=== PATIENT | female | born 1945 | race Caucasian/White ===

== ENCOUNTER 2019-10-08 09:38 | Outpatient (CLI) | payer MEDICARE, SELFPAY ==
--- NOTE | ~2019-10-08 | MMUS_ITS ---
US breast biopsy LT w image, MM post biopsy invasive LT 10/08/2019 10:39 (accession [id number]), 10/08/2019 10:40 (accession [id number]) EXAMINATION: US GUIDED NEEDLE BIOPSY WITH VACUUM ASSISTANCE DATE: 10/08/2019 10:54 CDT INDICATION: Left breast mass seen on prior examination. Ultrasound-guided core biopsy is requested t o evaluate for malignancy. TECHNIQUE AND FINDINGS: The risks and potential benefits of the procedure were discussed with the patient, and written inform ed consent was obtained. After sterile preparation of the left breast, 1% lidocaine was utilized for local anesthesia. 1% lidocaine with epinephrine was used for deep anesthesia. A 10G vacuum-assisted biopsy gun needle was advanced through to the outer edge of the region of inter est from a superior approach utilizing sonographic guidance. A total of three tissue core samples we re obtained through the lesion. An Inrad tissue marker clip was then placed at the biopsy site. Hemo stasis was achieved. The patient tolerated procedure well and there was no evidence of immediate complication. The patien t was given verbal instructions partly is from the department. Left breast mammograms to document ti ssue marker clip placement. The tissue samples were submitted to surgical pathology for histologic an alysis.] IMPRESSION: 1. Successful ultrasound-guided vacuum-assisted biopsy of left breast mass with tissue marker placem ent. Please refer to pathology report for histologic analysis. Reviewed, dictated and finalized at location A. IMPRESSION: 1. Successful ultrasound-guided vacuum-assisted biopsy of left breast mass wit h tissue marker placement. Please refer to pathology report for histologic anal ysis.
== END 2019-10-08 09:39 | disposition home or self-care (01) ==
LOC: ANHIMG 09:46
PROVIDERS: PCP Family Medicine; Visit Provider Surgery
DX: C50.412 Malignant neoplasm of upper-outer quadrant of left female breast (principal)
CPT/HCPCS: 19083; 88305; 88342

== ENCOUNTER 2019-11-05 00:32 | Outpatient (CLI) | payer MEDICARE, SELFPAY ==
[2019-11-06 13:40] LABS: SARS-CoV-2 RNA PCR Negative
== END 2019-11-05 00:33 | disposition home or self-care (01) ==
LOC: ANHCOVIDDT 00:32
PROVIDERS: PCP Family Medicine; Visit Provider Surgery
DX: Z01.812 Encounter for preprocedural laboratory examination (principal); Z20.828 Contact with and (suspected) exposure to other viral communicable diseases
CPT/HCPCS: 87635; C9803; U0003

== ENCOUNTER 2019-11-08 01:12 | Day surgery (SDC) | payer MEDICARE, SELFPAY ==
[2019-11-02 14:13] VITALS: BMI 24.1
[2019-11-08] VITALS (7 sets, daily range): BP systolic 114–127; BP diastolic 47–68; PULSE 54–76; RESP 10–20; TEMP 36.4; O2SAT 97–100
--- NOTE | ~2019-11-08 | NM_ITS ---
NM sentinel node inject only 11/09/2019 11:13 CDT INDICATION: Left breast cancer] TECHNIQUE: 1.1 Millicuries Tc 99m filtered sulfur colloid was injected by Dr. Shiv Person in 4 aliquo ts in the anterior upper outer quadrant of the breast near the areola. No images were obtained.] IMPRESSION: 1: Status post left breast sentinel lymph node radiopharmaceutical injection.] Reviewed, dictated and finalized at location B.
--- NOTE | ~2019-11-08 | MM_ITS ---
MM needle loc LT DATE: 11/08/2019 10:27 INDICATION: Preoperative wire localization of ribbon biopsy marker of inner mid left breast TECHNIQUE: The purpose of the procedure, technique and potential locations were discussed with the didier gordon. The patient verbalized understanding and gave consent. Timeout procedure confirmed proper patient, procedure and proper breast. The left breast was placed in compression with biopsy grid apparatus over the medial aspect of the le ft breast. The skin was prepared with sterile Betadine solution. 1% lidocaine local anesthetic was a warping mill operator th e skin overlying the area of the left breast marker. Subsequently a 5 cm [place] Mammalok needle was in troduced into the area of the biopsy marker. Mediolateral mammographic view confirmed proper directio n of the needle. Craniocaudal exposures were performed, with adjustment of the depth of the needle. S ubsequently the wire was engaged to the tip of the needle and the needle withdrawn. Final mediolatera l and craniocaudal mammographic exposures confirmed the wire intermittently positioned with respect t o the biopsy marker. The patient was very cooperative and tolerated the procedure well, without complaint or apparent comp lication. IMPRESSION: Successful preoperative mammographically guided wire localization of radiopaque biopsy ma rker in the inner mid left breast Reviewed, dictated and finalized at Location A. Reviewed, dictated and finalized at location A. IMPRESSION: Successful preoperative mammographically guided wire localization o f radiopaque biopsy marker in the inner mid left breast
--- NOTE | ~2019-11-08 | MM_ITS ---
MM surgical specimen LT DATE: 11/08/2019 13:28 INDICATION: Surgical excision of biopsy marker of left breast TECHNIQUE: Single digital mammographic exposure of surgical biopsy specimen without compression COMPARISON: 10/08/2019 postultrasound-guided biopsy left mammogram 11/08/2019 mammographic needle localization images FINDINGS: A biopsy marker is present within the surgical soft tissue specimen. IMPRESSION: Successful surgical excision of biopsy marker Reviewed, dictated and finalized at Location A. Reviewed, dictated and finalized at location A.
--- NOTE | 2019-11-08 07:31 | PM.HPGS ---
History of Present Illness History of Present Illness Consent: Risks, benefits, and alternatives of a left breast needle localized lumpectomy with sentinel lymph node biopsy possible left axillary dissection have been discussed and questions answered. Patient agrees to proceed with procedure. Chief complaint: left breast mass Narrative: Arianna Palacios is a 74 year old white female that presented to the office at the request of Dr Barnes for an evaluation after an abnormal mammogram. Patient had a diagnostic bilateral mammogram on 09/16/2019 that showed 16 mm maximal dimension left breast hypoechic lesion. BI-RADS 4. Patient had a left breast ultrasound on 09/16/2019 that showed 16 mm maximal dimension suspicious hypoechic lesion corresponding to the patient's palpable abnormality. Recommend biopsy. Patient reports she first noticed a palpable lump in her left breast in May. She reports the area was slightly bothersome and that is when she noticed it. She reports from when she first noticed the lump, it has not changed. She reports her pervious mammogram was 5+ years ago. She reports that she took control for a while, believes that this was for about 4-5 years. She reports she first started having periods when she was about 13 years old, at her best guess. She reports she has three children that were all delivered vaginally. She did not breast feed any of these children. She reports that she delivered the first child when she was 17 or 18 years old. She reports no changes to the nipple on either breast. Denies any drainage or discharge. Patient reports that this is the only mass that she can feel. Patient reports the area is not painful, but aggravating. Patient reports a family history of breast cancer because of a niece. She reports this is her brother's daughter, and she was diagnosed with breast cancer at the age of 35. She reports no sisters, and her mother at the age of 94 with double pneumonia and CHF. She reports that her mother had no problems with her breast. She reports her father of a stroke. She reports a history of hypertension, high cholesterol, diabetes type 2, and a-fib and CHF. She reports she had cardiac bypass in 2013. Patient currently takes medication to control these. Patient is currently taking Eliqus that is managed by Dr Ellis's she reports she has not seen a wind energy project manager in over a year ago she believes Review of Systems Constitutional: Constitutional: Reports no additional constitutional complaints, Reports fatigue and Denies malaise Eyes: Eyes: Denies change in vision and Denies loss of vision ENT: Reports Normal hearing present, Denies change in voice, Denies dizziness, Denies hoarseness and Denies sore throat Cardiovascular: Cardiovascular: Denies chest pain, Denies leg edema and Denies dyspnea Comments: Patient has a history of previous coronary bypass grafting in 2013. She has had no recent heart problems. She does have atrial fibrillation for which she is taking Eliquis. Respiratory: Respiratory: Denies cough, Denies dyspnea and Denies wheezing Gastrointestinal: Gastrointestinal: Denies hematochezia, Denies change in bowel habits and Denies heartburn Genitourinary: Genitourinary: Denies urinary frequency and Denies urinary incontinence Neurologic: Reports Normal hearing present, Denies confusion, Denies dizziness, Denies loss of vision, Denies memory loss and Denies seizure-like activity Psychiatric: Psychiatric: Denies confusion, Denies depression and Denies memory loss Endocrine: Endocrine: Denies cold intolerance and Reports fatigue Hematologic/Lymphatic: Hematologic/Lymphatic: Denies easy bleeding and Denies easy bruising Allergic/Immunologic: Allergic/Immunologic: Denies wheezing [facility] Past Medical History Medical History (Updated 11/08/19 @ 09:30 by Rigo Santiago DO) A-fib (~2013) Breast cancer, left breast (~08/2019) CAD (coronary artery disease) (~2013) CHF (con
[2019-11-08 09:00] LABS: Glucose Point of Care 143 (65-105)
[2019-11-08] MEDS: LACTATED RINGERS 1,000 ML 30 ML IV CONT (11:00)
--- NOTE | 2019-11-08 11:23 | WPDANESEPPF ---
Anes - Initial Pre Proc Eval Procedure: Operation Date: 11/08/19 11:30 Proposed Procedures p Left Breast Lumpectomy with Ultrasound and/Or Mammogram Guided Needle Localization, - Fran Richter MD s Left [place] Lymph Node Injection and Biopsy - Fran Richter MD Date/Time: 11/08/19 11:23 Surgeon: Fran Richter MD Pre Op Diagnosis: left breast mass Patient Data Age: 74 Gender: F Height: 1.56 m Weight: 58.2 kg Allergies Allergy/AdvReac Type Severity Reaction Status Date / Time amoxicillin Allergy Unknown Rash Verified 11/08/19 09:07 ampicillin Allergy Unknown rash Verified 11/08/19 09:07 Home Medications Medication Instructions Recorded Confirmed Type amlodipine 10 mg tablet 10 mg PO QAM 09/17/19 11/08/19 History apixaban 5 mg tablet 5 mg PO BID 09/17/19 11/08/19 History furosemide 40 mg tablet 60 mg PO QAM 09/17/19 11/08/19 History lisinopril 5 mg tablet 5 mg PO QAM 09/17/19 11/08/19 History nitroglycerin 2.5 mg 2.5 mg PO Q3-5M PRN 09/17/19 11/08/19 History capsule,extended release pravastatin 80 mg tablet 80 mg PO HS 09/17/19 11/08/19 History sotalol 80 mg tablet 80 mg PO QAM 09/17/19 11/08/19 History potassium chloride [Klor-Con M20] 20 meq PO QAM 11/02/19 11/08/19 History Laboratory Tests 11/08/19 08:58 POC Capillary Glucose 143 mg/dl H mg/dl (65-105) Patient hx anesthesia problems: none Family hx anesthesia problems: none REPLACED BY [facility] Past Medical History Medical History (Updated 11/08/19 @ 09:30 by Rigo Santiago DO) A-fib (~2013) Breast cancer, left breast (~08/2019) CAD (coronary artery disease) (~2013) CHF (congestive heart failure) Diabetes (Unknown) GERD (gastroesophageal reflux disease) Heart attack High cholesterol History of blood clots HTN (hypertension) (Unknown) Thyroid disease Surgical History Surgical History (Updated 11/08/19 @ 09:30 by Rigo J. Luchtefeld, DO) History of colonoscopy History of coronary artery stent placement prior to CABG History of ear surgery History of hip replacement Hx of CABG x3, 06/2013 Hx of cholecystectomy Family History Family History Father Diabetes mellitus Cerebrovascular accident Mother Bladder cancer Sibling Heart attack Grandparent Diabetes mellitus Social History Social History Smoking status: Never smoker Alcohol intake: never Substance use: never Living arrangements: alone Gender identity (if verbalized by the patient): Male Spiritual care concerns: No Anes - Eval Final PreProcedure Day of Procedure 11/08/19 11:23 Patient weight: normal Heart: regular rate and rhythm Lungs: clear to auscultation and normal air movement Airway: Mallampati scale class II Neurological: alert and oriented Last oral intake: >/= 8 hours ASA classification: IV Emergent: no Anesthetic plan: proceed Anesthesia type and monitoring: general LMA and standard monitoring Informed Consent: The patient's anesthetic plan and its attendant risks and benefits were discussed with the patient/family/POA. Questions were solicited and answers provided to the satisfaction of the patient/family/POA.
--- NOTE | 2019-11-08 11:33 | WPDHPUPDATE1 ---
History and Physical Update Update Date/Time: 11/08/19 11:33 History and Physical has been reviewed, including an updated exam of the patient. There are NO changes in the patient's condition. The pt have an echocardiogram done by her cardiolgist prior to cardiac clearence for this OR. Risks, benefits, and alternatives have been discussed and questions answered. Patient agrees to proceed with procedure.
[2019-11-08] MEDS: ceFAZolin 2 GM/D5W 50 ML 2 GM/50 ML BAG IVPB (11:38)
[2019-11-08] MEDS: BUPIVACAINE/EPINEPHRINE 0.25% 50 ML VIAL 30 ML INFILTRATE (12:25)
[2019-11-08] MEDS: ISOSULFAN BLUE 1% INJ 5 ML VIAL SUB-Q (12:27)
--- NOTE | 2019-11-08 12:48 | SUR.OPER ---
[place] Lymph Node #1 hand delivered to lab by KURT Cruz and received by Devi at 12:49.
--- NOTE | 2019-11-08 13:25 | SUR.OPER ---
Left Breast Lumpectomy specimen hand delivered to mamms by KURT Steiner and received by Chloe at 13:26.
--- NOTE | 2019-11-08 13:43 | SUR.OPER ---
Left Breast [place] Lymph Node #2 hand delivered to lab by KURT Cruz, and received by Devi at 13:42.
[2019-11-08 14:14] LABS: Glucose Point of Care 146 (65-105)
--- NOTE | 2019-11-08 14:33 | PM.PROC ---
Procedure Note - Detailed Date of procedure: 11/08/19 Pre-op diagnosis: left breast mass Biopsy-proven left breast cancer Post-op diagnosis: same Procedure performed: needle localized left breast lumpectomy Left sentinel lymph node biopsy times 2 injection of Lymphazurin blue (for identification sentinel lymph) Description of procedure: The patient was seen pre-operatively in the holding area, and I marked the patient on the operative side. The Left. She was brought to the operating room and anesthesia delivered. She was prepped and draped in the usual sterile fashion. The arm on this side was placed into a stockinette and wrapped with a Coband. It was then draped into the field sterile. A timeout was performed confirming patient and site of surgery. Then after inspection of the breast I carefully used Lymphazarin blue, 5 cc, to inject 1 cc in the subcuticular area of the areola at the edge of the areola at [address]. This was done with a 25 gauge needle and then the breast was massaged for 1 minute. A Left axillary incision was made, and the subcutaneous tissues were dissected toward the area of the second intercostal-brachail nerve with electrocautery and the clavipectoral fascia was incised with electrocautery. Using the Nvigator sentinel lymph node probe, the sentinel lymph node was identified and the count in vivo was up to 300 as we dissected one node out. I carefully dissected out what appeared to be a lymph node that was marked with high counts and also with a small blue green lymphatic heading directly to it. There was some blue green dye that appeared to be in the lymph node on one end of the approximately 2 x 1 cm area of the axillary tissue removed. at the other and there was something palpable which may be another lymph node. We notified the pathologist to watch for this. Then an ex vivo 10- second count of 3083 was recorded. The count in the axilla after removing this lymph node was between 12 and 40, for background noise. The sentinel lymph node was sent fresh for pathologic evaluation (touch preps). Following this a sterile 4 x 4 was placed in the axillary wound and a sterile towel placed over it. And we turned our attention to the left breast. We then turned our attention to the wire entering the medial side of the left breast approximately 3 cm off the nipple-areolar border about the 3 o'clock position. The localizing wire was noted to be entering the breast in the upper inner quadrant angled slightly laterally. This was entering just about 3 cm medial to the left nipple-areolar complex in that area. A transverse incision was made along the wire (starting just medial to it) and the tissue surrounding the distal end of the wire was removed widely with electrocautery. since review of the needle localized mammogram showed that the wire angled underneath the nipple I angled with it and took out a wide margin of tissue around the wire and beyond it laterally. The specimen was oriented using a long suture lateral in his short suture superior and laid on a grid for the specimen mammogram andit was sent for specimen mammogram. I did also send the breast tissue for fresh tissue exam immediate report requested at pathology. We waited to hear from pathology. First we heard that touch preps on the sentinel lymph node were negative. Also there were 1 smaller node along side the 1 marked as the 1st sentinel lymph node therefore after discussion with pathology They will search the specimen for another one and reported as a sentinel lymph node if found. Specimen mammogram was called back adequate by the Radiology department containing a clip, wire, and the abnormality Following this pathology called back also about the breast specimen. Mammography of the specimen showed the original biopsy clip that marked the tumor was in the specimen as all of the wire. Pathologist stated that we were close on the anterior barron
== END 2019-11-08 16:00 | disposition home or self-care (01) ==
PROVIDERS: PCP Family Medicine; Visit Provider Surgery
PROC: (CPT 19301; principal; 2019-11-08 11:30)
PROC: (CPT 19301; 2019-11-08 11:30)
DX: C50.912 Malignant neoplasm of unspecified site of left female breast (principal); I11.0 Hypertensive heart disease with heart failure; I50.9 Heart failure, unspecified; I48.91 Unspecified atrial fibrillation; I25.10 Atherosclerotic heart disease of native coronary artery without angina pectoris; E11.9 Type 2 diabetes mellitus without complications; K21.9 Gastro-esophageal reflux disease without esophagitis; I25.2 Old myocardial infarction; E07.9 Disorder of thyroid, unspecified; Z79.01 Long term (current) use of anticoagulants; Z95.1 Presence of aortocoronary bypass graft; Z95.5 Presence of coronary angioplasty implant and graft
CPT/HCPCS: 19301; 38525; 19281; 38792; 76098; 88307; 88329; 88333; A9270; A9520; C1713; C1769; J0690; J1100; J2250; J2405; J2704; J3010; J7120

== ENCOUNTER 2020-01-24 14:49 | Outpatient (CLI) | payer MEDICARE, SELFPAY ==
[2020-01-24 15:03] LABS: Basophils Absolute Auto 0.1 K/mm3 (0.0-0.1); Eosinophils Absolute Auto 0.2 K/mm3 (0-0.3); Eosinophils Percent Auto 2.6 % (0-4.4); Hematocrit 43.2 % (37.0-47.0); Hemoglobin 13.5 g/dL (12.0-15.0); Immature Granulocyte Absolute 0.02 K/mm3 (0.00-0.031); Immature Granulocyte Percent A 0.3 % (0-0.5); Lymphocytes Absolute Auto 0.99 K/mm3 (0.9-3.2); Mean Corpuscular HGB Conc 31.3 g/dl (32-36); Mean Corpuscular Hemoglobin 28.8 pg (26-34); Mean Corpuscular Volume 92.3 fl (80-100); Mean Platelet Volume 10.8 fl (7.4-10.4); Monocytes Absolute Auto 0.6 K/mm3 (0.1-0.6); Monocytes Percent Auto 9.9 % (2.6-8.5); Neutrophils Absolute Auto 4.3 K/mm3 (1.3-6.7); Neutrophils Percent Auto 70.2 % (45.5-73.1); Platelet Count Result 167 k/mm3 (150-375); Red Blood Count 4.68 M/mm3 (4.2-5.4); Red Cell Distribution Width 13.2 % (11.5-14.5); White Blood Count 6.2 K/mm3 (4.5-10.0)
[2020-01-24 15:07] LABS: Blood Urea Nitrogen 20 mg/dL (8-26); Carbon Dioxide 31 mmol/L (22-30); Chloride 102 mmol/L (98-109); Estimated Glomerular Filt Rate > 60; Glucose 128 mg/dL (70-105); Potassium 3.5 mmol/L (3.5-4.9); Sodium 143 mmol/L (138-146)
[2020-01-24 17:36] LABS: Alanine Aminotransferase 14 U/L (4-35); Albumin Level 4.5 g/dL (3.5-5.1); Alkaline Phosphatase 117 U/L (38-126); Anion Gap 10 mmol/L (8-16); Aspartate Amino Transferase 31 U/L (14-36); Bilirubin,Total 0.3 mg/dL (0.2-1.3); Blood Urea Nitrogen 20 mg/dL (7-17); Calcium 9.8 mg/dL (8.4-10.2); Carbon Dioxide 34 mmol/L (22-30); Chloride 100 mmol/L (98-107); Estimated Glomerular Filt Rate > 60; Glucose 131 mg/dL (65-105); Potassium 3.8 mmol/L (3.4-5.0); Sodium 144 mmol/L (137-145)
== END 2020-01-24 14:50 | disposition home or self-care (01) ==
LOC: ANHLAB 14:51
PROVIDERS: PCP Family Medicine; Visit Provider Internal Medicine Hematology & Oncology
DX: C50.912 Malignant neoplasm of unspecified site of left female breast (principal); Z17.0 Estrogen receptor positive status [ER+]
CPT/HCPCS: 36415; 80048; 80053; 85025

== ENCOUNTER 2020-07-10 14:11 | Outpatient (CLI) | payer MEDICARE, SELFPAY ==
--- NOTE | ~2020-07-10 | MM_ITS ---
EXAMINATION: MM diagnostic zaki BI w thi HISTORY: History of breast cancer TECHNIQUE: Additional 3-D tomosynthesis images of the breasts were performed and synthetic 2-D images were generated. CAD analysis was submitted and interpreted. COMPARISON: 09/16/2019 BREAST PARENCHYMAL COMPOSITION: The breasts are heterogenously dense, which may obscure small masses. FINDINGS: There are no new masses, calcifications or architectural distortion in either breast to sug gest malignancy. There are benign bilateral breast calcifications. There is asymmetry in the central aspect of the left breast, corresponding to prior surgical site with possible developing fat necrosis . IMPRESSION: 1. No evidence for malignancy in either breast. 2. Routine yearly screening mammogram and regular clinical breast examination are recommended. BI-RADS Category 2: Benign finding(s). Reviewed, dictated and finalized at location A. IMPRESSION: 1. No evidence for malignancy in either breast. 2. Routine yearly screening mammogram and regular clinical breast examination a re recommended. BI-RADS Category 2: Benign finding(s).
== END 2020-07-10 14:12 | disposition home or self-care (01) ==
LOC: ANHIMG 14:16
PROVIDERS: PCP Family Medicine; Visit Provider Internal Medicine Hematology & Oncology
DX: C50.112 Malignant neoplasm of central portion of left female breast (principal); Z17.0 Estrogen receptor positive status [ER+]
CPT/HCPCS: 77062; 77066; G0279

== ENCOUNTER 2020-12-22 14:49 | Outpatient (CLI) | payer MEDICARE, SELFPAY ==
--- NOTE | ~2020-12-22 | DEXA_ITS ---
Bone Density Report Name: Arianna Palacios Age: 75 Sex: Female Ethnicity: White Date of : 1945 Indication: postmenopausal; height loss; cancer; Referring Provider: Jarocho Dumont Study: Bone densitometry was performed. Exam Date: December 22, 2020 Accession number: [id number] Bone Density: Region BMD T-score Z-score Classification AP Spine (L1-L4) 0.718 -3.0 -0.5 Osteoporosis Femoral Neck (Right) 0.657 -1.7 0.4 Osteopenia Total Hip (Right) 0.595 -2.8 -0.9 Osteoporosis World Health Organization criteria for BMD impression classify patients as: Normal (T-score at or above -1.0), Osteopenia (T-score between -1.0 and -2.5), or Osteoporosis (T-score at or below -2.5). 10-year Fracture Risk: FRAX not reported because: Some T-score for Spine Total or Hip Total or Femoral Neck at or below -2.5 Treated for osteoporosis Clinical Information Provided by Patient: Is being treated for osteoporosis Has used the following medications: Vitamin D, Calcium Has the following medical conditions: Cancer Patient maximum height was 65 Menopause Age: 44 No regular weight bearing exercise Onset of menses at age 11 Number of children 3 Impression: The patient has osteoporosis, based on the Total Spine T-score. Discussion: It is important to ask patients whether they are taking their medications and to encourage continued and appropriate compliance with their osteoporosis therapies to reduce fracture risk. It is also important to review their risk factors and encourage appropriate calcium and vitamin D intakes, exercise, fall prevention and other lifestyle measures. Follow-Up: Consider a repeat BMD and Vertebral Fracture Assessment (VFA) exam in 2 years or sooner if medically necessary, to reassess this patient's status. Reported by: HEIDI on 12/22/2020 3:05:00 PM. Reviewed, dictated and finalized at location ANoelle [facility]EROksana
== END 2020-12-22 14:50 | disposition home or self-care (01) ==
LOC: ANHIMG 14:50
PROVIDERS: PCP Family Medicine; Visit Provider Internal Medicine Hematology & Oncology
DX: Z78.0 Asymptomatic menopausal state (principal); M81.0 Age-related osteoporosis without current pathological fracture; M85.851 Other specified disorders of bone density and structure, right thigh
CPT/HCPCS: 77080

== ENCOUNTER 2021-10-13 10:18 | Outpatient (CLI) | payer MEDICARE, SELFPAY ==
--- NOTE | ~2021-10-13 | MM_ITS ---
EXAMINATION: MM screening zaki BI w thi HISTORY: Screening TECHNIQUE: Craniocaudal and mediolateral oblique 3-D tomosynthesis images were obtained and synthetic 2-D images were generated. CAD analysis was submitted and interpreted. COMPARISON: Comparison to multiple prior studies sequentially, with oldest reviewed study dated 09/15. BREAST PARENCHYMAL COMPOSITION: The breasts are heterogeneously dense, which may obscure small masses FINDINGS: There is distortion and asymmetry of the left breast, consistent with previous lumpectomy w ith radiation therapy change. There is no evidence of suspicious mass, calcification, or architectura l distortion to suggest malignancy in either breast. There has been no suspicious interval change. IMPRESSION: 1. No mammographic evidence of malignancy. 2. Recommend routine screening mammography in one year. BI-RADS Category 1: Negative Reviewed, dictated and finalized at location A.
== END 2021-10-13 10:19 | disposition home or self-care (01) ==
PROVIDERS: Visit Provider Internal Medicine Hematology & Oncology
DX: Z12.31 Encounter for screening mammogram for malignant neoplasm of breast (principal)
CPT/HCPCS: 77063; 77067

== ENCOUNTER 2022-10-31 10:43 | Outpatient (CLI) | payer MEDICARE, SELFPAY ==
--- NOTE | ~2022-10-31 | XR_ITS ---
Clinical Indication: Cough PA and lateral views of the chest: Comparison: None Findings: There is probable biapical scarring. No other pulmonary abnormality seen. Calcified mediast inal lymph nodes are present. Cardiomediastinal silhouette is within normal limits. Compression fract ure of what is probably T5 or T6 noted. Impression: Probable biapical scarring and calcified mediastinal lymph nodes. No definite acute abnormality seen. Compression fracture of probably T5 or T6. Reviewed, dictated and finalized at [facility]. Impression: Probable biapical scarring and calcified mediastinal lymph nodes. No definite acute abnormality seen. Compression fracture of probably T5 or T6.
== END 2022-10-31 10:44 | disposition home or self-care (01) ==
PROVIDERS: PCP Family Medicine; Visit Provider Family Medicine
DX: R05.9 Cough, unspecified (principal)
CPT/HCPCS: 71046

== ENCOUNTER 2023-09-10 15:38 | Outpatient (CLI) | payer MEDICARE, SELFPAY ==
--- NOTE | ~2023-09-10 | MM_ITS ---
EXAMINATION: MM screening zaki BI w thi HISTORY: Screening TECHNIQUE: Craniocaudal and mediolateral oblique 3-D tomosynthesis images were obtained and synthetic 2-D images were generated. CAD analysis was submitted and interpreted. COMPARISON: Comparison to multiple prior studies sequentially, with oldest reviewed study dated 09/15. BREAST PARENCHYMAL COMPOSITION: Not dense: There are scattered areas of fibroglandular density. FINDINGS: There is evidence of fat necrosis in the left breast, presumably from prior lumpectomy. The re is no evidence of suspicious mass, calcification, or architectural distortion to suggest malignanc y in either breast. There has been no suspicious interval change. IMPRESSION: 1. No mammographic evidence of malignancy. 2. Recommend routine screening mammography in one year. BI-RADS Category 1: Negative Reviewed, dictated and finalized at location B.
== END 2023-09-10 15:39 | disposition home or self-care (01) ==
LOC: ANHIMG 15:38
PROVIDERS: PCP Family Medicine; Visit Provider Internal Medicine Hematology & Oncology
DX: Z12.31 Encounter for screening mammogram for malignant neoplasm of breast (principal)
CPT/HCPCS: 77063; 77067